=== PATIENT | male | born 1950 | race Caucasian/White ===

== ENCOUNTER 2018-05-23 06:38 | Day surgery (SDC) | payer OTHER ==
[~2018-05-23] VITALS: Ht 180.3 cm; Wt 119.1 kg
[~2018-05-23 06:38] MED LIST: ALPR.5 PO; CLON.2 PO; Coreg12.5 MG PO; FURO40 PO; IBUP800 PO; LOSA50 PO; MAGNESIUM MALATE PO; Multiple Vitam1 EAC1 PO; POTCHL10ER PO; VITAMIN D31000 UNIT PO
== END 2018-05-23 09:05 | disposition home or self-care (01) ==
LOC: ORSCSDS 06:38
PROVIDERS: Internal Medicine Gastroenterology
PROC: 0DJD8ZZ Inspection of Lower Intestinal Tract, Via Natural or Artificial Opening Endoscopic (ICD-10-PCS; principal; 2018-05-23 08:00)
DX: Z12.11 Encounter for screening for malignant neoplasm of colon (principal); K57.30 Diverticulosis of large intestine without perforation or abscess without bleeding; K64.8 Other hemorrhoids; Z87.891 Personal history of nicotine dependence; Z79.899 Other long term (current) drug therapy
CPT/HCPCS: J0330; J1980; J2405; J7120

== ENCOUNTER 2024-06-02 07:50 | Inpatient (IN) | payer OTHER ==
[~2024-06-02] VITALS: Ht 177.8 cm; Wt 115.0 kg
[2024-06-02 08:13] LABS: BASOPHILS ABSOLUTE AUTO 0.04 K/mm3 (0.00-0.23); BASOPHILS PERCENT AUTO 1 % (0-2); EOSINOPHILS ABSOLUTE AUTO 0.04 K/mm3 (0.00-0.68); EOSINOPHILS PERCENT AUTO 1 % (0-6); Hematocrit 40.5 % (37.0-53.0); Hemoglobin 13.7 g/dL (13.5-17.5); IMMATURE GRAN ABSOLUTE AUTO 0.03 K/mm3 (0.00-0.10); IMMATURE GRAN PERCENT AUTO 0 % (0-1); LYMPHOCYTES PERCENT AUTO 15 % (21-46); MONOCYTES ABSOLUTE AUTO 0.53 K/mm3 (0.16-1.47); MONOCYTES PERCENT AUTO 6 % (4-13); Mean Corpuscular HGB 33.7 pg (26.0-34.0); Mean Corpuscular HGB Conc 33.8 g/dL (31.5-36.5); Mean Corpuscular Volume 100 fL (80-100); Mean Platelet Volume 10.6 fL (9.1-12.4); NEUTROPHILS ABSOLUTE AUTO 6.55 K/mm3 (1.96-9.15); NEUTROPHILS PERCENT AUTO 77 % (41-73); Platelet Count 204 K/mm3 (150-400); RDW Coefficient Variation 15.1 % (11.7-14.2); RDW Standard Deviation 55.8 fL (35.1-46.3); Red Blood Cell Count 4.07 M/mm3 (4.30-5.90); White Blood Cell Count 8.49 K/mm3 (4.00-11.30)
[2024-06-02 08:40] LABS: Albumin, Blood 3.4 g/dL (3.4-5.0); Albumin/Globulin Ratio 1.1 (0.8-1.8); Bilirubin, Total 0.9 mg/dL (0.1-1.0); Bun/Creatinine Ratio 26.4 (12.0-20.0); Calcium, Blood 9.4 mg/dL (8.5-10.1); Creatinine, Blood 0.91 mg/dL (0.60-1.20); Globulin, Blood 3.1 g/dL (2.2-4.0); Potassium, Blood 4.1 mmol/L (3.5-5.5); Total Protein, Blood 6.5 g/dL (6.4-8.2)
[2024-06-02] MEDS ORDERED: BUMETANIDE2 M6 PO (10:24)
[2024-06-02] MEDS ORDERED: BACLOFEN10 M4 PO (10:27)
[2024-06-02] MEDS ORDERED: CATAPRES0.2 M1 PO (10:27)
[2024-06-02] MEDS ORDERED: ALLOPURINOL100 M1 PO (10:28)
[2024-06-02] MEDS ORDERED: KLOR-CON 1010 ME9 PO (10:29)
[2024-06-02] MEDS ORDERED: Magnesium Hydroxide Conc 10 ML UDC PO PRN (10:55)
[2024-06-02] MEDS ORDERED: FLU VACC TS2024-25(6MOS UP)/PF 45 MCG/0.5 ML SYRINGE IM SCH (10:55)
[2024-06-02] MEDS ORDERED: Metoprolol Tartrate 25 MG Tab PO SCH (11:00)
[2024-06-02] MEDS ORDERED: Ondansetron HCl 2 MG / ML 2ML Vial IV PRN (11:00)
[2024-06-02] MEDS ORDERED: Midodrine 5 MG Tab PO SCH (11:00)
[2024-06-02] MEDS ORDERED: Furosemide 10 MG/ML 4ML Vial IV SCH (11:00)
[2024-06-02] MEDS ORDERED: Apixaban 5 MG Tab PO SCH (14:00)
[2024-06-02 15:26] VITALS: BP 104/83
[2024-06-02 17:48] VITALS: BP 108/82
[2024-06-02] MEDS ORDERED: Baclofen 10 MG Tab PO SCH (18:00)
--- NOTE | 2024-06-02 18:52 | NUR ---
SHIFT SUMMARY: PATIENT ALERT AND ORIENTED X4. ABLE TO STAND WITH WALKER. TELE SHOWING AFIB WITH HR 90-110'S. SBP 100S. ON ROOM AIR. BILATERAL LOWER EXTREMITY WITH WEEPING EDEMA AND BLISTERS/BROKEN BLISTER WOUNDS. SEE CHART PHOTOS. BOWEL TONES PRESENT. USING URINAL TO VOID. UP IN RECLINER AT THIS TIME. VITAL SIGNS STABLE. CALL LIGHT IN REACH.
[2024-06-02 20:08] VITALS: BP 94/67
[2024-06-02] MEDS ORDERED: Docusate Sodium 100 MG Cap PO SCH (21:00)
[2024-06-02] MEDS ORDERED: Melatonin 5 MG Tablet PO ONE (23:00)
[2024-06-02 23:20] VITALS: BP 101/72
[2024-06-03] VITALS (7 sets, daily range): BP systolic 94–143; BP diastolic 57–88
[2024-06-03 04:30] LABS: Bun/Creatinine Ratio 30.7 (12.0-20.0); Calcium, Blood 9.3 mg/dL (8.5-10.1); Creatinine, Blood 1.01 mg/dL (0.60-1.20)
--- NOTE | 2024-06-03 05:31 | NUR ---
SHIFT SUMMARY PT VITALLY STABLE WITH OVERALL UNEVENTFUL NIGHT. BLE WHEEPING EDEMA, CLEANSED WITH IODINE AND DRESSED. PT REPORTS IMPROVEMENT IN COMFORT. PRN MELATONIN ORDERED BY RESIDENT FOR SLEEP. PT C/O [id number] WHILE LYING IN BED. SPO2 AT THIS TIME WAS IN THE 80'S, PUT ON 2L NC FOR SLEEP WITH IMPROVEMENT. PT SPO2 >92% ON ROOM AIR WHILE AWAKE.
[2024-06-03] MEDS ORDERED: Allopurinol 100 MG Tab PO SCH (09:00)
[2024-06-03] MEDS ORDERED: Metolazone 5 MG Tab PO SCH (09:00)
[2024-06-03] MEDS ORDERED: Artificial Tears Opth Oint 7 GM BOTHEYES PRN (10:10)
--- NOTE | 2024-06-03 11:01 | NUR ---
AM NOTE: PATIENT ALERT AND ORIENTED X4. UP WITH SBA AND FWW. PERRLA, WEARING GLASSES. COMPLAINS OF DRY EYES, ARTIFICAL TEARS ORDERED. DENIES NUMBNESS/TINGLING. TELE SHOWING SR WITH HR 70'S. DENIES CHEST PAIN/PRESSURE/PALPITATIONS. SBP 120'S. FLUID RESTRICTION IN PLACE. IV SALINE LOCKED. EDEMA TO BLE WITH WOUNDS, SEE CHART PHOTOS. WOUNDS CLEANSED AND DRESSING CHANGED. ON 2L THIS AM AND TITRATED TO ROOM AIR, SATING ABOVE 95%. EVEN AND UNLABORED RESPIRATIONS. SOB WITH EXCERTION OR LAYING FLAT. DENIES ABDOMINAL PAIN/NAUSEA. STOOL SOFTNERS GIVEN THIS AM PER EMAR. TOLERATING PO DIET. STRICT I/O. ATTENDS IN PLACE. SCROTAL HERNIA. USING URINAL TO VOID. DR. STEVE TO BEDSIDE THIS AM, THIS RN PRESENT FOR MD BENÍTEZ. DENIES NEEDS AT THIS TIME. CALL LIGHT IN REACH.
--- NOTE | 2024-06-03 18:45 | NUR ---
SHIFT SUMMARY: NO ACUTE CHANGES, SEE PREVIOUS NOTE. PATIENT REMAINS ALERT AND ORIENTED. ON ROOM AIR. TELE SHOWING SR WITH HR 70-90'S. TOLERATING PO DIET. STRICT INTAKE AND OUTPUT. FLUID RESTRICTION MAINTAINED. WOUND CARE COMPLETED. DENIES PAINS. UP TO RECLINER FOR MEALS. SHOWER COMPLETED THIS SHIFT. VISITORS AT BEDSIDE THROUGHOUT THE DAY. PATIENT DENIES NEEDS AT THIS TIME. CALL LIGHT IN REACH.
[2024-06-03] MEDS ORDERED: Melatonin 5 MG Tablet PO SCH (21:00)
[2024-06-04] VITALS (7 sets, daily range): BP systolic 97–114; BP diastolic 59–73
[2024-06-04 05:31] LABS: Bun/Creatinine Ratio 39.3 (12.0-20.0); Calcium, Blood 9.4 mg/dL (8.5-10.1); Creatinine, Blood 0.92 mg/dL (0.60-1.20); Potassium, Blood 3.2 mmol/L (3.5-5.5)
--- NOTE | 2024-06-04 06:32 | NUR ---
SHIFT SUMMARY: PT IS A&OX4, PLEASANT AND COOPERATIVE WITH CARE. VSS ON RA. SR IN THE 80'S. DENIES PAIN. BLE'S WEEPING, DRESSING TO LLE REDRESSED D/T SATURATION. RLE C/D/I. SBA WITH FWW TO BED/CHAIR. PT STATES HE USES AN ELECTRIC SCOOTER AT HOME AND FOR LONGER DISTANCES. TOLERATING A HEART HEALTHY DIET, AND MAINTAINING A 1.5L FLUID RESTRICTION. VOIDING INDEPENDENTLY, LARGE AMOUNTS OF CLEAR, LIGHT YELLOW URINE IN URINAL. NO BM THIS SHIFT. BED IN LOWEST POSITION, CALL LIGHT WITHIN REACH. CALLS APPROPRIATELY AND IS ABLE TO ADVOCATE NEEDS EFFECTIVELY.
[2024-06-04] MEDS ORDERED: Potassium Chloride 20 MEQ TabCR PO ONE (08:30)
--- NOTE | 2024-06-04 10:28 | NUR ---
AM NOTE: PATIENT ALERT AND ORIENTED X4. ABLE TO MAKE NEEDS KNOWN. USING CALL LIGHT. UP WITH SBA AND FWW. TELE SHOWING SR WITH HR 80-90'S. SBP 110'S. DENIES CHEST PAIN/PRESSURE/PALPITATIONS. EDEMA TO BLE WEEPING. WOUND CARE TO BLE COMPLETED THIS AM. ON ROOM AIR SATING ABOVE 95%. LUNG SOUNDS CLEAR AND DIM IN BASES. BOWEL CARE MEDS GIVEN THIS AM. TOLERATING PO DIET. BOWEL TONES PRESENT. DENIES ABDOMINAL PAIN/NAUSEA. DR. STEVE TO BEDSIDE THIS AM. PLAN FOR MEDICAL WITH NO TELE. WOUND CARE ORDER PLACED BY THIS RN. STRICT INTAKE AND OUTPUT. FLUID RESTRICTION IN PLACE. CALL LIGHT IN REACH. UP IN RECLINER AT THIS TIME.
[2024-06-04] MEDS ORDERED: Potassium Chloride 10 Meq Tablet SA PO SCH (17:00)
--- NOTE | 2024-06-04 18:22 | NUR ---
SHIFT SUMMARY: NO ACUTE CHANGES. PATIENT REMAINS ALERT AND ORIENTED X4. VITAL SIGNS STABLE. TELE SHOWING SR. ON ROOM AIR. UP WITH SBA AND FWW. TOLERATING PO DIET. BLE EDEMA SLIGHTLY IMPROVED, CONTINUES TO WEEP. DRESSINGS REMOVED THIS AM AND SKIN CLEANSED WITH WOUND CLEANSER AND IODINE SWABS USED TO CLEANSE WOUND BEDS. LEFT OPEN TO AIR WHILE IN RECLINER DUE TO WEEPING. FLUID RESTRICTION MAINTAINED. CALL LIGHT IN REACH.
[2024-06-04] MEDS ORDERED: Midodrine 5 MG Tab PO ONE (18:50)
[2024-06-04] MEDS ORDERED: Baclofen 10 MG Tab PO SCH (21:00)
[2024-06-05 04:24] VITALS: BP 106/68
[2024-06-05 05:35] LABS: Bun/Creatinine Ratio 37.9 (12.0-20.0); Calcium, Blood 9.5 mg/dL (8.5-10.1); Creatinine, Blood 0.98 mg/dL (0.60-1.20)
--- NOTE | 2024-06-05 06:30 | NUR ---
SHIFT SUMMARY: PT IS A&OX4, PLEASANT AND COOPERATIVE WITH CARE. VSS ON RA. DENIES PAIN. BLE DRESSINGS C/D/I. SBA WITH FWW TO BED/CHAIR. PT STATES HE USES AN ELECTRIC SCOOTER AT HOME AND FOR LONGER DISTANCES. TOLERATING A HEART HEALTHY DIET, AND MAINTAINING A 1.5L FLUID RESTRICTION. VOIDING INDEPENDENTLY, LARGE AMOUNTS OF CLEAR, LIGHT YELLOW URINE IN URINAL. NO BM THIS SHIFT. BOWEL CARE ADMINISTERED. PT HAS MED/NO TELE ORDER, WAITING FOR AVAILABLE BED. BED IN LOWEST POSITION, CALL LIGHT WITHIN REACH. CALLS APPROPRIATELY AND IS ABLE TO ADVOCATE NEEDS EFFECTIVELY.
[2024-06-05 07:32] VITALS: BP 96/63
--- NOTE | 2024-06-05 07:35 | NUR ---
ASSUMPTION NOTE: THIS RN TO ASSUME CARE OF PATIENT. PATIENT SITTING AT THE EDGE OF BED AND WATCHING TV. VITAL SIGNS TAKEN, PT STABLE. PATIENT DENIED CEHST PAIN/PRESSURE OR FEELING SHORT OF BREATH. PATIENT IS MEDCIAL WITH NO TELE STATUS. PATIENT IS SITTING AT THE EDGE OF BED IN LOWEST POSITION AND HAS CALL LIGHT WITHIN REACH.
[2024-06-05] MEDS ORDERED: Mag Sulfate 1 GM/D5% 100ML 100 ML IV STA (07:53)
[2024-06-05] MEDS ORDERED: Potassium Chloride 40 MEQ in NS 250 ML IV ONE (07:55)
--- NOTE | 2024-06-05 08:43 | NUR ---
MD AT BEDSIDE: MD STEVE AT BEDSIDE AND CHATTED WITH PATIENT. PATIENT CONTINEUS TO PUT GOOD OUTPUT, WILL CHANGE POTASSIUM TO LIQUID PER PATIENT REQUEST. PATIENT TO CONTINUE MEDICATIONS TO GET FLUID OFF
[2024-06-05] MEDS ORDERED: Midodrine 5 MG Tab PO SCH (09:00)
[2024-06-05] MEDS ORDERED: Potassium Chloride 20 MEQ/15 ML UDC PO SCH ×3 (10:15→17:00)
[2024-06-05 11:41] VITALS: BP 110/68
[2024-06-05 15:36] VITALS: BP 97/89
--- NOTE | 2024-06-05 17:26 | NUR ---
SHIFT SUMMARY: PATIENT IS ALERT AND ORIENTED X4 AND COOPERATIVE WITH HIS CARE. IS MEDICAL WITHOUT TELE STATUS. PATIENT DENIED ANY CHEST PAIN/PRESSURE OR FEELING SHORT OF BREATH THROUGHOUT SHIFT. PATIENT IS ON ROOM AIR SATTING >92%, EVEN AND UNLABORED RESPIRATIONS AT REST. PATIENT WAS IN CHAIR MOST OF DAY, VISITING WITH FAMILLY & FRIENDS. PATIENT RECEIVED IV LASIX THROUGHOUT SHIFT AND HAD GOOD OUTPUT THROUGHOUT THE SHIFT. PATIENT BLOOD PRESSURE MAP >65, IS GETTING MIDODRINE PER EMAR. PATIENT IS A STAND BY ASSIST USING THE FRONT WHEELED WALKER AND USES THE CALL LIGHT APPROPRIATELY. BILATERAL LOWER LEG DRESSINGS WERE CHANGED AND PATIENT TOLERATED IT WELL. PATIENT IS IN CHAIR, HAS CALL LIGHT WITHIN REACH AND NOT STATING HE NEEDS ANY THING CURRENTLY.
[2024-06-05 20:06] VITALS: BP 98/64
[2024-06-06 04:09] LABS: Bun/Creatinine Ratio 44.7 (12.0-20.0); Creatinine, Blood 0.83 mg/dL (0.60-1.20); Potassium, Blood 2.6 mmol/L (3.5-5.5)
[2024-06-06] MEDS ORDERED: Potassium Chl 20MEQ/Water100ML 100 ML IV SCH (04:50)
[2024-06-06] MEDS ORDERED: Potassium Chloride 20 MEQ TabCR PO ONE (04:50)
[2024-06-06 05:21] VITALS: BP 98/66
[2024-06-06] MEDS ORDERED: Potassium Chloride 40 MEQ in NS 250 ML IV ONE (05:30)
[2024-06-06] MEDS ORDERED: Potassium Chloride 20 MEQ/15 ML UDC PO ONE (05:30)
--- NOTE | 2024-06-06 06:55 | NUR ---
SHIFT SUMMARY: PT IS A&OX4, PLEASANT AND COOPERATIVE WITH CARE. VSS ON RA. DENIES PAIN. BLE DRESSINGS C/D/I. SBA WITH FWW TO BED/CHAIR. TOLERATING A HEART HEALTHY DIET, AND MAINTAINING A 1.5L FLUID RESTRICTION. VOIDING INDEPENDENTLY, LARGE AMOUNTS OF CLEAR, LIGHT YELLOW URINE IN URINAL. NO BM THIS SHIFT. BOWEL CARE ADMINISTERED. PT HAS MED/NO TELE ORDER, WAITING FOR AVAILABLE BED. K AT 2.6, REPLACED WITH IVPB 40 mEq, AND PO 40 mEq. BED IN LOWEST POSITION, CALL LIGHT WITHIN REACH. CALLS APPROPRIATELY AND IS ABLE TO ADVOCATE NEEDS EFFECTIVELY.
[2024-06-06 07:32] VITALS: BP 102/68
--- NOTE | 2024-06-06 07:33 | NUR ---
ASSUMPTION NOTE: THIS RN TO ASSUME CARE OF PATIENT. PATIENT IS SITTING UP IN CHAIR AND LISTENING TO MUSIC. PATIENT IS ALERT AND ORIETNED X4 AND VITAL SIGNS TAKEN. PATIENT STABLE. HAS POTASSIUM RUNNING IN THE PERIPHERAL IV THAT PATIENT STATES BREAUX OCCASIONALLY. THIS RN ASKED IF PATIENT WOULD LIKE IT TO BE TURNED OUT BUT PATIENT STATED HE WOULD JUST LIKE TO GET IT THROUGH. PATIENT HAS CALL LIGHT WITHIN REACH, AND NOT STATING ANYTHING IS NEEDED AT THIS TIME.
[2024-06-06] MEDS ORDERED: Potassium Chloride 20 MEQ/15 ML UDC PO SCH (09:00)
[2024-06-06] MEDS ORDERED: Midodrine 5 MG Tab PO ONE (09:25)
--- NOTE | 2024-06-06 09:32 | NUR ---
MD TO BEDSIDE: MD STEVE CAME TO BEDSIDE AND CHATTED WITH PATIENT. PLAN WILL TO KEEP PATIENT A FEW MORE DAYS DUE TO POTASIIUM CONTINUEING TO BE LOW. CONTINUE TO DIURESIS AT CURRENT REGIMEN, AND MD INCREASED MIDODRINE & POTASSIUM ORAL INTAKE. PATIENT RECEPETIVE AND AGREED WITH WHAT THE MD ORDERED. PATIENT AWARE HE IS MEDICAL WITHOUT TELE STATUS.
[2024-06-06 12:12] VITALS: BP 125/109
[2024-06-06] MEDS ORDERED: Midodrine 5 MG Tab PO SCH (13:00)
[2024-06-06 15:28] VITALS: BP 104/74
--- NOTE | 2024-06-06 16:22 | NUR ---
WOUND CARE Q SHIFT WOUND CARE COMPLETED. PT TOLERATED WOUND CARE WELL.
--- NOTE | 2024-06-06 17:12 | NUR ---
SHIFT SUMMARY: PATIENT IS ALERT AND ORIENTED X4 AND ACTIVE IN HIS CARE. IS ABLE TO MAKE NEEDS KNOWN AND USES CALL LIGHT APPORIATELY. PATIENT IS MEDICAL NO TELE STATUS. SATTING >92% ON ROOM AIR ,EVEN AND UNLABORED RESPIRATIONS. PATIENT CONTINUES TO BE ON IV LASIX AND HAD GOOD OUTPUT THROUGHOUT SHIFT. PATIENT WOUND CARE WAS DONE TODAY. PATIENT REPORTED LATER IN THE SHIFT HE WAS HAVING TROUBLE PEEING, FEELING A BURNING SENSATION AND FEELING URGES BUT NOT ABLE TO PEE EVERYTIME, MD WAS CONTACTED AND UA WAS ORDERED & TO SKIP THE NEXT DOSE OF LASIX SCHEDULED FOR 1800. PATIENT NOTIFIED AND PENDING UA TO SEND TO LAB. PATIENT SITTING UP IN CHAIR THORUGHOUT SHIFT. CURRETNLY AT THE EDGE OF BED, HAS CALL LIGHT WITHIN REACH, BED IN LOWEST POSITION AND NOT STATING ANYTHING IS NEEDED.
--- NOTE | 2024-06-06 17:25 | NUR ---
md contacted: this rn contacted md regarding patient stating he feels a burning sensation when peeing & he feels the urge of peeing often but the output of urine has substationaly decreased as patient continues to get lasix. md gave verbal order to skip next scheduled dose of lasix and to send a ua to lab.
[2024-06-06 17:48] LABS: Source, Urine Clean Catch
[2024-06-06 17:54] LABS: Appearance, Urine Clear (Clear); Bilirubin, Urine Neg (Neg); Blood, Urine 1+ (Neg); Glucose Qualitative, Urine Neg (Neg); Ketones, Urine Neg (Neg); Leukocyte Esterase, Urine Neg (Neg); Nitrite, Urine Neg (Neg); Protein, Urine Neg (Neg); Urobilinogen, Urine NORM (Normal)
[2024-06-06 18:04] LABS: Color, Urine Pale Yellow (P-Yellow)
[2024-06-06 18:05] LABS: Bacteria Rare /hpf; Red Blood Cells, Urine 0-2 /hpf (0-2); Squamous Epithelial Cells Not Seen /hpf (Few); White Blood Cells, Urine 0-2 /hpf (0-5)
--- NOTE | 2024-06-06 18:11 | NUR ---
md contacted: this rn contacted md regarding patients ua results.
[2024-06-06 21:05] LABS: Bun/Creatinine Ratio 42.3 (12.0-20.0); Calcium, Blood 9.7 mg/dL (8.5-10.1); Creatinine, Blood 0.92 mg/dL (0.60-1.20); Potassium, Blood 3.5 mmol/L (3.5-5.5)
[2024-06-07 03:42] LABS: Bun/Creatinine Ratio 41.4 (12.0-20.0); Calcium, Blood 9.1 mg/dL (8.5-10.1); Creatinine, Blood 0.92 mg/dL (0.60-1.20); Magnesium, Blood 2.1 mg/dL (1.6-2.4); Potassium, Blood 3.3 mmol/L (3.5-5.5)
--- NOTE | 2024-06-07 05:48 | NUR ---
SHIFT SUMMARY PT HAS TOLERATED SHIFT WELL WITH NO CHANGES IN STATUS. PT STATES THAT HE STARTED THE NIGHT WITH BURNING WITH URINATION THAT HAS SINCE DECREASED IN INTENSITY. REPORT WAS CALLED TO 3RD FLOOR WHERE PT IS TO BE TRANSFERED. PT INFORMED AND UNDERSTANDING OF REASON FOR TRANSFER. PT TRANSFERRED BY WHEELCHAIR WITH BUNDLE TIER AND LABELER.
[2024-06-07 06:00] VITALS: BP 122/80
--- NOTE | 2024-06-07 06:45 | NUR ---
SHIFT SUMMARY: Pt is admitted for afib with RVR and is a full code. Is alert and able to make needs known. ADLs are SBA with FWW. denies pain or discomfort when asked. Dressings to bi lat lower CDI. arrived to floor about 0530.
[2024-06-07] MEDS ORDERED: Potassium Chloride 20 MEQ TabCR PO ONE (07:25)
[2024-06-07 07:48] VITALS: BP 106/70
[2024-06-07] MEDS ORDERED: Midodrine 5 MG Tab PO PRN (08:50)
[2024-06-07] MEDS ORDERED: Torsemide 20 MG TAB PO SCH (09:00)
[2024-06-07] MEDS ORDERED: TORSE20 PO (13:19)
[2024-06-07] MEDS ORDERED: K-TAB ER20 ME1 PO (13:20)
[2024-06-07] MEDS ORDERED: ELIQUIS5 M2 PO (13:20)
[2024-06-07] MEDS ORDERED: METO25 PO (13:21)
[2024-06-07] MEDS ORDERED: JARDIANCE10 MG PO (13:22)
[2024-06-07] MEDS ORDERED: MIDO5 PO (13:22)
--- NOTE | 2024-06-07 15:51 | NUR ---
PATIENT DISCHARGED HOME, INSTRUCTIONS GIVEN TO PATIENT AND FRIEND, BOTH STATED UNDERSTANDING OF MEDICATIONS, FOLLOW UP, AND INSTRUCTIONS. BOTH DENIED FURTHER QUESTIONS, PLEASANT TO CARE, ALL DRESSING CHANGED PRIOR TO DISCHARGE
== END 2024-06-07 15:42 | disposition home health service (06) | DRG 291 ==
LOC: ER 07:50 → ERHOLD 10:52 → PCU 10:52 → MEDS 06-07 06:03 → ENPENDDIS 06-07 13:03 → MEDS 06-07 15:42
PROVIDERS: Emergency Medicine; Family Medicine; ADMIT Internal Medicine
DX: I13.0 Hypertensive heart and chronic kidney disease with heart failure and stage 1 through stage 4 chronic kidney disease, or unspecified chronic kidney disease (principal); I50.33 Acute on chronic diastolic (congestive) heart failure; I48.91 Unspecified atrial fibrillation; E87.6 Hypokalemia; N40.0 Benign prostatic hyperplasia without lower urinary tract symptoms; N18.30 Chronic kidney disease, stage 3 unspecified; M19.90 Unspecified osteoarthritis, unspecified site; Z98.890 Other specified postprocedural states; Z79.899 Other long term (current) drug therapy
CPT/HCPCS: 36415; 71045; 80048; 80053; 81001; 83735; 83880; 84439; 84443; 84484; 85025; 93005; 93010; 94760; 99285-25; A9270; J1940; J3475; J3480; J7050

== ENCOUNTER → 2024-06-14 | Outpatient (CLI) | payer OTHER ==
[~2024-06-14] MED LIST changes: +ALLOPURINOL100 M1 PO; +BACLOFEN10 M4 PO; +BUMETANIDE2 M6 PO; +CATAPRES0.2 M1 PO; +ELIQUIS5 M2 PO; +JARDIANCE10 MG PO; +K-TAB ER20 ME1 PO; +KLOR-CON 1010 ME9 PO; +METO25 PO; +MIDO5 PO; +TORSE20 PO
== END ==
LOC: LAB SHORT 18:42 → LAB 18:42
DX: E87.6 Hypokalemia (principal)
CPT/HCPCS: 84132

== ENCOUNTER → 2024-06-22 | Outpatient (CLI) | payer OTHER | LOC: LAB SHORT 18:26 → LAB 18:26 | DX: E87.6 Hypokalemia (principal) | CPT/HCPCS: 84132 ==

== ENCOUNTER → 2024-07-06 | Outpatient (CLI) | payer OTHER | LOC: LAB 18:11 → LAB SHORT 18:11 | DX: R23.8 Other skin changes (principal); L08.9 Local infection of the skin and subcutaneous tissue, unspecified | CPT/HCPCS: 87070; 87077; 87186; 87205 ==

== ENCOUNTER → 2024-07-13 | Outpatient (CLI) | payer OTHER ==
[2024-07-13 20:29] LABS: Prostate Specific Antigen 0.565 ng/mL (0.000-4.000)
[2024-07-13 20:32] LABS: Albumin, Blood 3.7 g/dL (3.4-5.0); Anion Gap 10 mmol/L (3-11); Blood Urea Nitrogen 39 mg/dL (8-24); Bun/Creatinine Ratio 43.6 (12.0-20.0); CO2, Blood 28 mmol/L (21-32); Calcium, Blood 10.3 mg/dL (8.5-10.1); Chloride, Blood 100 mmol/L (98-108); Creatinine, Blood 0.89 mg/dL (0.60-1.20); Glomerular Filtration Rate 90 (60-); Glucose, Blood 110 mg/dL (70-99); Potassium, Blood 4.5 mmol/L (3.5-5.5); Sodium, Blood 133 mmol/L (136-145)
== END | disposition home or self-care (01) ==
LOC: LAB SHORT 13:00 → LAB 13:00
PROVIDERS: Internal Medicine Nephrology
DX: N18.30 Chronic kidney disease, stage 3 unspecified (principal); D63.1 Anemia in chronic kidney disease; N40.1 Benign prostatic hyperplasia with lower urinary tract symptoms
CPT/HCPCS: 80069; 84153; 85018